=== PATIENT | female | born 1975 | race Caucasian/White ===

== ENCOUNTER 2025-04-23 20:30 | Emergency (ER) | payer OTHER ==
[~2025-04-23] VITALS: Ht 165.1 cm; Wt 93.4 kg
[~2025-04-23 20:30] MED LIST: CIPRO500 MG PO; LAMICTAL100 MG PO; ZOLOFT100 MG PO
[2025-04-23] MEDS ORDERED: VIBRAMYCIN100 MG PO (22:53)
[2025-04-23] MEDS ORDERED: PREDNISONE20 M1 PO (22:53)
[2025-04-23] MEDS ORDERED: Dexamethasone Sodium Phospha 20 MG/5 ML VIAL IM ONE (22:55)
[2025-04-23] MEDS ORDERED: diphenhydrAMINE hydrochloride 25 MG CAP PO ONE (22:55)
== END 2025-04-23 23:05 | disposition home or self-care (01) ==
LOC: ED 20:30
DX: L03.311 Cellulitis of abdominal wall (principal); Z79.899 Other long term (current) drug therapy; Z88.2 Allergy status to sulfonamides; Z88.8 Allergy status to other drugs, medicaments and biological substances

== ENCOUNTER → 2025-06-15 | Outpatient (CLI) | payer OTHER ==
[~2025-06-15] MED LIST changes: +PREDNISONE20 M1 PO; +VIBRAMYCIN100 MG PO
[2025-06-15 15:32] LABS: BASO # 0.1 10*3/uL (0.0-0.1); BASO % 0.9 % (0.0-1.0); EOS # 0.1 10*3/uL (0.0-0.4); EOS % 1.9 % (1.0-4.0); MEAN CELL VOLUME 89.6 fl (81.0-99.0); MEAN CORPUSCULAR HGB 28.6 pg (27.0-31.0); MEAN PLATELET VOLUME 9.6 fl (9.6-12.3); MONO # 0.4 10*3/uL (0.1-1.0); MONO % 6.3 % (3.0-9.0); NEUT # 3.8 10*3/uL (2.3-7.9); NEUT % 60.5 % (47.0-73.0); NUCLEATED RED BLOOD CELL 0.0 % (0.0-0.0); NUCLEATED RED BLOOD CELL 0.0 10*3/uL (0.0-0.0); PLATELET COUNT AUTOMATED 278 10*3/uL (130-400); RED CELL DISTRI WIDTH 12.7 % (0-14.5)
[2025-06-15 15:57] LABS: BUN 12 mg/dl (9-23); SGPT/ALT 11 U/L (5-49)
[2025-06-16 12:07] LABS: CCP ANTIBODIES IGG/IGA >250 units (0-19)
[2025-06-17 08:08] LABS: TB1 Ag VALUE 0.04 IU/mL (.)
== END | disposition home or self-care (01) ==
LOC: LAB 15:04
PROVIDERS: ATTEND Student in an Organized Health Care Education/Training Program
DX: M06.9 Rheumatoid arthritis, unspecified (principal); D84.9 Immunodeficiency, unspecified; Z79.899 Other long term (current) drug therapy